=== PATIENT | male | born 1985 | race Caucasian/White ===

== ENCOUNTER 2022-10-20 14:06 | Emergency (ER) | payer OTHER ==
[~2022-10-20] VITALS: Ht 172.7 cm; Wt 70.3 kg
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
--- NOTE | 2022-10-20 14:40 | NUR ---
PATIENT NOW A/O X 3, ABLE TO MAKE NEEDS KNOWN. TOLERATING WELL ON ROOM AIR. NAME AND BIRTHDATE OBTAINED AND GIVEN TO ADMITTING.
--- NOTE | 2022-10-20 18:12 | NUR ---
Patient discharged to home in stable condition. Written and verbal after care instructions given. Patient verbalizes understanding of instruction.IV removed. Catheter intact and site benign. Pressure and 4x4 applied to site. No bleeding noted.
[2022-10-20 18:13] VITALS: BP 122/80
== END 2022-10-20 18:13 | disposition home or self-care (01) ==
LOC: EDBD 14:12 → ER 14:12
DX: R40.20 Unspecified coma (principal); T40.601A Poisoning by unspecified narcotics, accidental (unintentional), initial encounter; Y92.89 Other specified places as the place of occurrence of the external cause
CPT/HCPCS: 82962-TC